=== PATIENT | male | born 1940 | race Caucasian/White ===

== ENCOUNTER → 2016-07-22 | Day surgery (SDC) | payer MEDICARE ==
[~2016-07-22] MED LIST: ALPR.25 PO; ASPI1TAB69 PO; ASPI81TA11 PO; BOSW5TAB PO; BUPIVACAINE HCL PF 0.75% 30 ML VIAL ONE; BUTA1CAP PO; CINN500C PO; CINN500C13 PO; CLON0.5T PO; CYANOCOBALAMIN 1000 MCG/ML VIAL IM ONE; CYCL1TAB29 PO; ERGO1CAP30 PO; FINA5TAB2 PO; MEPERIDINE HCL 25 MG/ML VIAL IV ONE; META0.52 PO; MIRA33504 PO; OXYC30TA PO; POLY17PO3 PO; PROPOFOL 200 MG/20 ML AMP IV ONE; SAW500CA PO; SENE8.6T3 PO; SUMA100T2 PO; TRAM50TA PO; TRIAMCINOLONE ACETONIDE 40 MG/ML VIAL NERV BLOCK ONE; VITATAB25 PO
--- NOTE | 2016-07-23 09:58 | M6 ---
cc: RADHA MENJIVAR M.D. DATE: 07/22/2016 DATE OF : 1940 History and physical was completed and signed. Consent was signed. Procedure site was marked. Medications were listed and reconciled. Pain score was recorded. Allergies were noted. Timeout was taken. Fluoroscopy time was recorded where applicable. Sedation was administered or directed by Dr. Menjivar. The patient was given oxygen. The patient was monitored by a registered nurse. Total procedure time was greater than 15 minutes. PROCEDURE S5 nerve neurolysis. PROCEDURE NOTE An IV was started, blood pressure cuff, pulse oximeter and EKG were applied. The patient was placed in a prone position and sedated with small amounts of propofol. The sacral and coccygeal area were prepped with alcohol and 10% Betadine solution, draped with sterile drapes. Then a 25-gauge needle was used to inject a total of 8 mL of Marcaine 0.75% which contained 60 mg of Kenalog and 1000 mcg of B12. Following this the patient was taken to the recovery room with stable vital signs. W. MD SKYLAR Huntley/LUCY /7:41 AM /9:55 AM
== END | disposition home or self-care (01) ==
LOC: PHSDC 06:26
PROVIDERS: ATTEND Pain Medicine Interventional Pain Medicine
DX: M54.5 Low back pain (principal)
CPT/HCPCS: 64640; 99152; J2175; J3301; J3420

== ENCOUNTER → 2016-08-04 | Day surgery (SDC) | payer MEDICARE ==
[~2016-08-04] MED LIST changes: -CYANOCOBALAMIN 1000 MCG/ML VIAL IM ONE
--- NOTE | 2016-08-08 09:53 | M6 ---
cc: RADHA MENJIVAR M.D. DATE 08/04/2016 DATE OF 1940 PROCEDURE S5 nerve neurolysis. PROCEDURE NOTE History and physical was completed and signed. Consent was signed. Procedure site was marked. Medications were listed and reconciled. Pain score was recorded. Allergies were noted. Time out was taken. Fluoroscopy time was recorded where applicable. Sedation was administered or directed by Dr. Menjivar. The patient was given oxygen. The patient was monitored by a registered nurse. Total procedure time was greater than 15 minutes. IV was started, blood pressure cuff, pulse oximeter and EKG were applied. The patient was placed in the prone position on a Mark table, sedated with small amounts of propofol titrated to effect. Vital signs were monitored and remained stable throughout the procedure. Sacral and coccygeal area were prepped with alcohol and 10% Betadine solution, draped with sterile drapes. The sacral hiatus was palpated. A 25 gauge needle was inserted down to the periosteum just distal to the hiatus. There was negative aspiration for blood or any other type of fluid and the patient was given a total of 8 mL of Marcaine 0.75% and 40 mg of Kenalog. Following the procedure, the patient was taken to the recovery room with stable vital signs neurologically intact. W. MD SKYLAR Huntley/GAURAV /7:30 AM /9:50 AM
== END | disposition home or self-care (01) ==
LOC: PHSDC 06:34
PROVIDERS: ATTEND Pain Medicine Interventional Pain Medicine
DX: M54.5 Low back pain (principal)
CPT/HCPCS: 64640; 99152; J2175; J3301

== ENCOUNTER → 2016-08-11 | Outpatient (CLI) | payer MEDICARE ==
[~2016-08-11] MED LIST changes: -ALPR.25 PO; -BUPIVACAINE HCL PF 0.75% 30 ML VIAL ONE; -BUTA1CAP PO; -FINA5TAB2 PO; -MEPERIDINE HCL 25 MG/ML VIAL IV ONE; -PROPOFOL 200 MG/20 ML AMP IV ONE; -TRIAMCINOLONE ACETONIDE 40 MG/ML VIAL NERV BLOCK ONE
[2016-08-11 13:18] LABS: AUTOMATED NEUTROPHIL # 4.4 TH/MM3 (1.8-7.7); BASOPHIL % 0.2 % (0.0-2.0); EOSINOPHIL % 0.3 % (0.0-4.0); HEMATOCRIT 40.7 % (39.0-51.0); HEMO FLAGS DIFF FINAL; LYMPH % 13.1 % (9.0-44.0); LYMPHOCYTE # 0.7 TH/MM3 (1.0-4.8); MEAN CELL VOLUME 88.8 FL (80.0-100.0); MEAN CORPUSCULAR HGB CONC 32.7 % (32.0-36.0); MONO % 8.5 % (0.0-8.0); NEUT % 77.9 % (16.0-70.0); PLATELET COUNT 142 TH/MM3 (150-450); RED BLOOD COUNT 4.58 MIL/MM3 (4.50-5.90); RED CELL DISTRIBUTION WIDTH 15.1 % (11.6-17.2); WHITE BLOOD COUNT 5.7 TH/MM3 (4.0-11.0)
[2016-08-11 13:33] LABS: ALKALINE PHOSPHATASE 93 U/L (45-117); ALT (GPT) 31 U/L (12-78); ANION GAP 9 MEQ/L (5-15); AST (GOT) 37 U/L (15-37); BICARBONATE 27.3 MEQ/L (21.0-32.0); BLOOD UREA NITROGEN 19 MG/DL (7-18); CHLORIDE 104 MEQ/L (98-107); GLOMERULAR FILTRATION RATE 89 ML/MIN (>89); GLUCOSE,FASTING 95 MG/DL (74-99); POTASSIUM 3.9 MEQ/L (3.5-5.1); SODIUM (NA) 140 MEQ/L (136-145); TOTAL BILIRUBIN ADULT 0.6 MG/DL (0.2-1.0)
== END ==
LOC: PLAB 11:01
PROVIDERS: ATTEND Family Medicine
DX: E55.9 Vitamin D deficiency, unspecified (principal)
CPT/HCPCS: 36415; 80053; 82306; 85025

== ENCOUNTER → 2016-09-24 | Day surgery (SDC) | payer MEDICARE ==
[~2016-09-24] MED LIST changes: +LIDOCAINE HCL 1% 30 ML VIAL INFIL ONE; +MEPERIDINE HCL 50 MG/ML VIAL IV ONE; +MIDAZOLAM HCL 2 MG/2 ML VIAL IV ONE; +PROPOFOL 200 MG/20 ML AMP IV ONE; +SODIUM CHLORIDE 0.9% 10 ML VIAL ONE; +methylPREDNISolone ACETATE 40 MG/ML VIAL I-ARTICULR ONE
--- NOTE | 2016-09-24 10:04 | M6 ---
cc: RADHA MENJIVAR M.D. DATE: 09/24/2016 1940 PROCEDURE Radiofrequency rhizotomy bilateral cervical facet joints (bilateral C3-4, C4-5 and C5-6 facet joints). History and physical was completed and signed. Consent was signed. Procedure site was marked. Medications were listed and reconciled. Pain score was recorded. Allergies were noted. Time out was taken. Fluoroscopy time was recorded where applicable. Sedation was administered or directed by Dr. Menjivar. The patient was given oxygen. The patient was monitored by a registered nurse. Total procedure time was greater than 15 minutes. IV was started, blood pressure cuff, pulse oximeter and EKG were applied. The patient was placed in the prone position on a Mark table, sedated with small amounts of propofol titrated to effect. Vital signs were monitored and remained stable throughout the procedure. The cervical area was prepped with alcohol and 10% Betadine solution and draped with sterile drapes. Fluoroscopy was used to visualize the target areas which were the "waist" between the bilateral cervical facet joints at C3-4, C4-5 and C5-6. The skin was infiltrated with 1% Xylocaine using a 27 gauge needle then insulated 20-gauge radiofrequency needles with a 10-mm active tip were advanced to the above-mentioned target areas. Fluoroscopy was used to confirm the needle was not near the nerve root. Once probably positioned thermal lesions took place at 80 degrees centigrade times 90 seconds. This was followed by injection of a small amount of Depo-Medrol at each location for a total of 60 mg of Depo-Medrol. Following the procedure the patient was taken to the recovery room with stable vital signs, neurologically intact. W. MD SKYLAR Huntley/SANTOS /8:10 AM /9:57 AM
== END | disposition home or self-care (01) ==
LOC: PHSDC 06:37
PROVIDERS: ATTEND Pain Medicine Interventional Pain Medicine
DX: M54.2 Cervicalgia (principal)
CPT/HCPCS: 64633; 64634; 99152; 99153; J1030; J2175; J2250

== ENCOUNTER → 2016-10-09 | Day surgery (SDC) | payer MEDICARE ==
[~2016-10-09] MED LIST changes: -ASPI1TAB69 PO; +BUPIVACAINE HCL PF 0.75% 30 ML VIAL ONE; -CINN500C PO; -LIDOCAINE HCL 1% 30 ML VIAL INFIL ONE; +MEPERIDINE HCL 25 MG/ML VIAL IV ONE; -MEPERIDINE HCL 50 MG/ML VIAL IV ONE; -MIDAZOLAM HCL 2 MG/2 ML VIAL IV ONE; -MIRA33504 PO; -SODIUM CHLORIDE 0.9% 10 ML VIAL ONE; +TRIAMCINOLONE ACETONIDE 40 MG/ML VIAL NERV BLOCK ONE; -methylPREDNISolone ACETATE 40 MG/ML VIAL I-ARTICULR ONE
--- NOTE | 2016-10-11 20:38 | M6 ---
cc: RADHA MENJIVAR M.D. DATE: 10/09/2016. DATE OF : 1940 PROCEDURE PERFORMED: S5 nerve neurolysis. DESCRIPTION OF THE PROCEDURE IN DETAIL: History and physical was completed and signed. Consent was signed. Procedure site was marked. Medications were listed and reconciled. Pain score was recorded. Allergies were noted. Time out was taken. Fluoroscopy time was recorded where applicable. Sedation was administered or directed by Dr. Menjivar. The patient was given oxygen. The patient was monitored by a registered nurse. Total procedure time was greater than 15 minutes. IV was started, blood pressure cuff, pulse oximeter and EKG were applied. The patient was placed in the prone position and sedated with small amounts of propofol titrated to effect. Vital signs were monitored and remained stable throughout the procedure. The sacral and coccygeal area were prepped with alcohol and 10% Betadine solution and draped with sterile drapes. The sacral hiatus was palpated. The coccyx was palpated. A 25 gauge needle was inserted down to the periosteum just distal to the sacral hiatus. There was negative aspiration for blood or any other type of fluid and the patient was given 8 mL of Marcaine 0.75%, 40 milligrams of Kenalog in a fan-like fashion across the dorsal aspect of the coccyx. Following the procedure, the patient was taken to the recovery room with stable vital signs neurologically intact. W. MD SKYLAR Huntley/MATEUSZ /7:35 AM /8:37 PM
== END | disposition home or self-care (01) ==
LOC: PHSDC 06:31
PROVIDERS: ATTEND Pain Medicine Interventional Pain Medicine
DX: M53.3 Sacrococcygeal disorders, not elsewhere classified (principal)
CPT/HCPCS: 64640; 99152; J2175; J3301

== ENCOUNTER 2016-11-28 13:14 | Emergency (ER) | payer MEDICARE ==
[~2016-11-28] VITALS: Ht 177.8 cm; Wt 70.0 kg
[~2016-11-28 13:14] MED LIST changes: -BUPIVACAINE HCL PF 0.75% 30 ML VIAL ONE; -CLON0.5T PO; -ERGO1CAP30 PO; -MEPERIDINE HCL 25 MG/ML VIAL IV ONE; -META0.52 PO; -POLY17PO3 PO; -PROPOFOL 200 MG/20 ML AMP IV ONE; -TRAM50TA PO; -TRIAMCINOLONE ACETONIDE 40 MG/ML VIAL NERV BLOCK ONE
[2016-11-28 13:19] VITALS: BP 164/93; PULSE 98; RESP 16; TEMP 98.2; O2SAT 99
[2016-11-28] MEDS ORDERED: ZITHTAB PO (14:18)
--- NOTE | 2016-11-28 14:41 | PD ---
HPI Chief Complaint: Cold / Flu Symptoms Time Seen by Provider: 14:03 Travel History International Travel<30 days: No Contact w/Intl Traveler<30days: No Traveled to known affect area: No History of Present Illness HPI This patient complains of low-grade fever and productive cough. He has some sinus pressure on the right side as well. He is traveling by plane to [place] in 5 days and wants to get his infection treated. No shortness of breath. Symptoms severity is moderate PFSH Past Medical History Cancer: No Cardiovascular Problems: Yes (1 stent) Diabetes: No Diminished Hearing: No Endocrine: No Genitourinary: Yes Hepatitis: No Hiatal Hernia: No Immune Disorder: No Musculoskeletal: Yes (back pain) Neurologic: No Psychiatric: Yes (ANXIETY) Reproductive: No Respiratory: No Myocardial Infarction: Yes (with stents) Thyroid Disease: No Past Surgical History AICD: No Body Medical Devices: 1 stent Cardiac Surgery: Yes (1 stent) Eye Surgery: Yes Joint Replacement: No Pacemaker: No Tonsillectomy: Yes Social History Alcohol Use: No Tobacco Use: No Substance Use: No Allergies-Medications (Allergen,Severity, Reaction): Coded Allergies: acetaminophen (Unverified Allergy, Severe, GI UPSET, 11/28/16) cephalexin (Unverified Allergy, Severe, Diarrhea, 11/28/16) oxycodone (Unverified Allergy, Severe, GI UPSET, 11/28/16) topiramate (Unverified Allergy, Severe, DEPRESSION, 11/28/16) Reported Meds & Prescriptions Reported Meds & Active Scripts Active Oxycodone (Oxycodone HCl) 30 Mg Tab 30 Mg PO Q6H PRN Reported Osteo Bi-Flex One A Day (Uyzyapkrw-Rdvtktfnkql-Ryzksve) 1 Tab 1 Tab PO DAILY Saw [place] 500 Mg Capsule 450 Mg PO DAILY Vitamin D-[address] (Cholecalciferol) 1,000 Unit Tab 1,000 Units PO DAILY Sumatriptan (Sumatriptan Succinate) 100 Mg Tab 100 Mg PO ONCE PRN If a satisfactory response has not been obtained at 2 hours, a second dose may be administered Sm Cinnamon (Cinnamon) 500 Mg Cap 1 Cap PO DAILY Aspirin EC (Aspirin) 81 Mg Tabdr 81 Mg PO DAILY Flexeril (Cyclobenzaprine HCl) 10 Mg Tab 10 Mg PO TID Senexon (Sennosides) 8.6 Mg Tab 1 Tab PO BID Review of Systems General / Constitutional: Positive: Fever HENT: No: Headaches Cardiovascular: No: Chest Pain or Discomfort Respiratory: Positive: Cough Physical Exam Narrative RESPIRATORY: Respiratory effort unlabored, no retractions or use of accessory muscles. Breath sounds are clear and symmetric. NECK: Symmetrical appearance, midline trachea. No mass or crepitus. Thyroid without enlargement, tenderness, or mass. Throat clear GASTROINTESTINAL: Abdomen soft, non-tender, nondistended. Positive bowel sounds. No hepato-splenomegaly, or palpable masses. No guarding. Data Data Last Documented VS Vital Signs Date Time Temp Pulse Resp B/P Pulse Ox O2 Delivery O2 Flow Rate FiO2 11/28/16 13:19 98.2 98 16 164/93 99 MDM Medical Decision Making Medical Screen Exam Complete: Yes Emergency Medical Condition: Yes Medical Record Reviewed: Yes Differential Diagnosis Bronchitis, pneumonia, sinusitis Narrative Course I have reviewed the patient's electronic medical record. Presentation is consistent with acute bronchitis with maybe a degree of sinusitis I wrote him a Z-Oral Diagnosis Primary Impression: Acute bronchitis Qualified Code: J20.9 - Acute bronchitis, unspecified organism Additional Instructions: The patient was advised to follow up with their physician and return if they worsen. Med/Other Pt SpecificInfo: Prescription(s) given Scripts Azithromycin (Zithromax Z-Oral)250 Mg [id number] Mg PO DIRECTED #1 DSPK Ref 0 500 MG (2 tabs) day 1, then 1 tab days 2-5. Prov:Christian Ronquillo MD 11/28/16 Disposition: 01 DISCHARGE HOME Condition: Stable Chrisitan Ronquillo MD Nov 28, 2016 14:40
[2016-12-05] MEDS ORDERED: SUMA100T2 PO (13:39)
[2016-12-05] MEDS ORDERED: ERGO1CAP30 PO ×2 (13:42→13:45)
== END 2016-11-28 14:52 | disposition home or self-care (01) ==
LOC: PHED 13:14
DX: J20.9 Acute bronchitis, unspecified (principal); R51 Headache; I25.2 Old myocardial infarction; Z86.79 Personal history of other diseases of the circulatory system; Z87.448 Personal history of other diseases of urinary system; Z87.39 Personal history of other diseases of the musculoskeletal system and connective tissue; Z86.59 Personal history of other mental and behavioral disorders
CPT/HCPCS: 99283

== ENCOUNTER → 2017-03-12 | Outpatient (CLI) | payer MEDICARE ==
[~2017-03-12] MED LIST changes: -ASPI81TA11 PO; +ASPI81TA23 PO; -BOSW5TAB PO; -CINN500C13 PO; +CINN500C14 PO; +CYCL10TA PO; -CYCL1TAB29 PO; +VITA500012 PO
== END ==
LOC: CLAB 11:44
PROVIDERS: ATTEND Urology
DX: N40.1 Benign prostatic hyperplasia with lower urinary tract symptoms (principal)
CPT/HCPCS: 36415; 84153

== ENCOUNTER → 2017-04-27 | Day surgery (SDC) | payer MEDICARE ==
[~2017-04-27] VITALS: Ht 170.2 cm; Wt 69.5 kg
[~2017-04-27] MED LIST changes: +ACETAMINOPHEN 1000 MG/100 ML 100 ML IV ONE; +CHLORHEXIDINE GLUCONATE 2 % 1 PACK (2 CLOTHS) TOPICAL PRN; +DEXAMETHASONE SOD PHOS 4 MG/ML VIAL IV ONE; +DO NOT ADM ANY ANTICOAGULANT DRUGS PRN; +GLYCOPYRROLATE 1 MG/5 ML SYRINGE IV PUSH ONE; +LACTATED RINGER'S 1000 ML IV PRN; +LEVA500T33 PO; +LEVOFLOXACIN 500 MG PREMIX INJ 100 ML IV SCH; +LIDOCAINE HCL 1% PF 5 ML SYRINGE OTHER ONE; +METOPROLOL TARTRATE 25 MG TAB PO PRN; +ONDANSETRON HCL 4 MG/2 ML VIAL IV ONE; +ONDANSETRON HCL 4 MG/2 ML VIAL IV PUSH PRN; +OXYC1CAP PO; +PHENYLEPH/NS 1000 MCG/10 ML SYR IV ONE; +POVIDONE IODINE 5% (ANTISEPSIS KIT) 4 APPLICATIONS EACH NARE PRN; +PROPOFOL 200 MG/20 ML AMP IV ONE; +ROCURONIUM INJ 50 MG/5 ML SYRINGE IV PUSH ONE; -SAW500CA PO; +SODIUM CHLORID 0.9% 500 ML IV PRN; +SUGAMMADEX SODIUM 200 MG/2 ML VIAL IV PUSH ONE; -VITA500012 PO; -VITATAB25 PO; +ePHEDrine/NS 25 MG/5 ML SYRINGE IV ONE
[2017-04-27 11:17] LABS: BASOPHIL % 0.5 % (0.0-2.0); EOSINOPHIL # 0.2 TH/MM3 (0-0.4); EOSINOPHIL % 3.4 % (0.0-4.0); HEMATOCRIT 39.7 % (39.0-51.0); HEMOGLOBIN 13.6 GM/DL (13.0-17.0); LYMPH % 21.8 % (9.0-44.0); MEAN CELL VOLUME 87.1 FL (80.0-100.0); MEAN CORPUSCULAR HEMOGLOBIN 29.9 PG (27.0-34.0); MEAN CORPUSCULAR HGB CONC 34.3 % (32.0-36.0); MONO % 10.2 % (0.0-8.0); MONOCYTE # 0.5 TH/MM3 (0-0.9); NEUT % 64.1 % (16.0-70.0); PLATELET COUNT 181 TH/MM3 (150-450); RED BLOOD COUNT 4.56 MIL/MM3 (4.50-5.90); RED CELL DISTRIBUTION WIDTH 13.4 % (11.6-17.2); WHITE BLOOD COUNT 4.7 TH/MM3 (4.0-11.0)
--- NOTE | 2017-04-27 14:06 | PD.OP ---
Operative Report Date of Surgery: Apr 27, 2017 Preoperative Diagnosis: (1) BPH (benign prostatic hypertrophy) with urinary obstruction Postoperative Diagnosis: (1) BPH (benign prostatic hypertrophy) with urinary obstruction Procedure: Cystoscopy and transurethral resection of the prostate Anesthesia: General Surgeon: Hever Magaña Post Office Clerk(s): None Operation and Findings: Indication for procedure: Case of a pleasant 76-year-old gentleman with lower urinary tract symptoms who was recently worked up with cystoscopy and noted to have bladder outlet obstruction secondary to enlarged obstructing median lobe of the prostate. Patient presents today to undergo cystoscopy with transurethral resection of the obstructing prostatic tissue. Operative procedure in detail: Patient was brought to the operating suite and placed supine on the OR table. He was then placed under general anesthesia. He was then repositioned in the dorsal lithotomy position and prepped and draped in normal sterile fashion. After an appropriate timeout was undertaken, I proceeded with placement of the resectoscope sheath with the obturator in place. The obturator was then exchanged for the lens with the working element. Once again the patient was noted to have bladder outlet obstruction secondary to enlarged median lobe of prostate. I then proceeded with resection of the obstructing prostatic tissue. Care was taken to avoid any inadvertent vaporization of tissue in the vicinity of the ureter office his or beyond the verumontanum thus preserving the integrity of the external sphincter. Once the obstructing tissue was resected, the Elik evacuator was used to recover this tissue which was sent off to pathology. Careful inspection was then made for evidence of active bleeding and none was noted. The resectoscope was withdrawn and a 20 Sami 30 cc Cui catheter was placed without difficulty and connected to gravity drainage. The patient tolerated the procedures without complications and was transferred to the PACU in satisfactory condition. Hever Magaña MD Apr 27, 2017 14:05
[2017-04-27 16:05] VITALS: BP 152/89; PULSE 75; RESP 18; TEMP 97.5; O2SAT 97
--- NOTE | 2017-04-28 15:11 | EKG ---
Date Performed: 04/27/2017 Time Performed: 10:45:12 PTAGE: 76 years EKG: Sinus rhythm Since previous tracing, no significant change noted NORMAL ECG PREVIOUS TRACING : 01/22/2016 13.47 DOCTOR: Emily Diehl Interpretating Date/Time 04/28/2017 15:10:23
== END | disposition home or self-care (01) ==
LOC: HSDC 09:59
PROVIDERS: ATTEND Urology
DX: N40.1 Benign prostatic hyperplasia with lower urinary tract symptoms (principal); N13.8 Other obstructive and reflux uropathy; Z01.810 Encounter for preprocedural cardiovascular examination; Z01.818 Encounter for other preprocedural examination
CPT/HCPCS: 00914; 52601; 85025; 88305; 93005; J0131; J1100; J2370; J2405; J3010; J7120

== ENCOUNTER 2017-06-04 17:45 | Emergency (ER) | payer MEDICARE ==
[~2017-06-04] VITALS: Ht 179.1 cm; Wt 68.0 kg
[~2017-06-04 17:45] MED LIST changes: -ACETAMINOPHEN 1000 MG/100 ML 100 ML IV ONE; -CHLORHEXIDINE GLUCONATE 2 % 1 PACK (2 CLOTHS) TOPICAL PRN; -DEXAMETHASONE SOD PHOS 4 MG/ML VIAL IV ONE; -DO NOT ADM ANY ANTICOAGULANT DRUGS PRN; -GLYCOPYRROLATE 1 MG/5 ML SYRINGE IV PUSH ONE; -LACTATED RINGER'S 1000 ML IV PRN; -LEVA500T33 PO; -LEVOFLOXACIN 500 MG PREMIX INJ 100 ML IV SCH; -LIDOCAINE HCL 1% PF 5 ML SYRINGE OTHER ONE; -METOPROLOL TARTRATE 25 MG TAB PO PRN; -ONDANSETRON HCL 4 MG/2 ML VIAL IV ONE; -ONDANSETRON HCL 4 MG/2 ML VIAL IV PUSH PRN; -PHENYLEPH/NS 1000 MCG/10 ML SYR IV ONE; -POVIDONE IODINE 5% (ANTISEPSIS KIT) 4 APPLICATIONS EACH NARE PRN; -PROPOFOL 200 MG/20 ML AMP IV ONE; -ROCURONIUM INJ 50 MG/5 ML SYRINGE IV PUSH ONE; -SODIUM CHLORID 0.9% 500 ML IV PRN; -SUGAMMADEX SODIUM 200 MG/2 ML VIAL IV PUSH ONE; -ePHEDrine/NS 25 MG/5 ML SYRINGE IV ONE
[2017-06-04 17:49] VITALS: BP 150/82; PULSE 86; RESP 16; TEMP 98.3; O2SAT 98
[2017-06-04] MEDS ORDERED: SODIUM CHLORIDE 0.9% FLUSH 10 ML FLUSH IV FLUSH PRN (18:30)
--- NOTE | 2017-06-04 18:31 | PD ---
HPI Chief Complaint: Fall Time Seen by Provider: 18:05 Travel History International Travel<30 days: No Contact w/Intl Traveler<30days: No Traveled to known affect area: No History of Present Illness HPI 76-year-old male with history of dementia lives with his , here for evaluation of lower back pain and coccyx pain after 2 falls in the last 5 days. About 5 days ago the patient slid off of his chair to the ground. About 3 days ago he fell backwards while in the bathroom. He denies head injury or LOC during each of these falls. He is not on any antiplatelets or anticoagulants. He has been having worsening lower back pain and pain over his coccyx her last 2 -3 days. Pain is 7 out of 10, constant, worse with movements, radiates to his bilateral lower extremities. He also complains of constant pain in his knees, stating that the pain in his knees make him fall. 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) Hepatitis: No Hiatal Hernia: No Immune Disorder: No Musculoskeletal: Yes (back pain, ARTHRITIS) Neurologic: No Psychiatric: Yes (ANXIETY) Reproductive: No Respiratory: No Myocardial Infarction: Yes (with stents) Thyroid Disease: No Tetanus Vaccination: Unknown ?: Not Past Surgical History AICD: No Body Medical Devices: CARDIAC STENT Cardiac Surgery: Yes (1 stent) Eye Surgery: Yes (CATARACT REMOVAL) Joint Replacement: No Pacemaker: No Tonsillectomy: Yes Other Surgery: Yes Social History Alcohol Use: No Tobacco Use: No Substance Use: No Allergies-Medications (Allergen,Severity, Reaction): Coded Allergies: No Known Allergies (Unverified , 06/04/17) Reported Meds & Prescriptions Reported Meds & Active Scripts Active Sumatriptan (Sumatriptan Succinate) 100 Mg Tab 100 Mg PO ONCE PRN If a satisfactory response has not been obtained at 2 hours, a second dose may be administered Reported Oxycodone (Oxycodone HCl) 30 Mg Tab 30 Mg PO Q6H PRN Sm Cinnamon (Cinnamon) 500 Mg Cap 1 Cap PO DAILY Aspirin EC (Aspirin) 81 Mg Tabdr 81 Mg PO DAILY PT OFF DOSE FOR 2WEEKS IN PREP FOR SURGERY Senexon (Sennosides) 8.6 Mg Tab 1 Tab PO BID Review of Systems Except as stated in HPI: all other systems reviewed are Neg Physical Exam Narrative GENERAL: Well-developed, well-nourished, elderly-appearing male, lying on the stretcher on his right side, no apparent distress. SKIN: Focused skin assessment warm/dry. Ecchymosis to right anterior knee. No lacerations. HEAD: Atraumatic. Normocephalic. EYES: Pupils equal and round. No scleral icterus. No injection or drainage. ENT: No nasal bleeding or discharge. Mucous membranes pink and moist. NECK: Trachea midline. No JVD. CARDIOVASCULAR: Regular rate and rhythm. RESPIRATORY: No accessory muscle use. Clear to auscultation. Breath sounds equal bilaterally. GASTROINTESTINAL: Abdomen soft, non-tender, nondistended. Hepatic and splenic margins not palpable. MUSCULOSKELETAL: Ecchymosis to right anterior knee with mild edema, normal range of motion in bilateral knees without obvious deformity. Moderate midline lumbar spine tenderness without step-off. There is also tenderness over the coccyx bone. Mild midline thoracic spine tenderness without step-off. No midline cervical spine tenderness or step-off. The rest of his joints and extremities are without deformity, without tenderness, with normal range of motion. NEUROLOGICAL: Awake and alert. No obvious cranial nerve deficits. Motor grossly within normal limits. Normal speech. PSYCHIATRIC: Appropriate mood and affect; insight and judgment normal. Data Data Last Documented VS Vital Signs Date Time Temp Pulse Resp B/P (MAP) Pulse Ox O2 Delivery O2 Flow Rate FiO2 06/04/17 20:05 82 16 142/75 (97) 99 Nasal Cannula 06/04/17 17:49 98.3 Orders Orders Complete Blood Count With Diff (06/04/17 18:24) Comprehensive Metabolic Panel (06/04/17 18:24) Prothrombin Time / Inr (Pt) (06/04/17 18:24) Act Partial Throm Time (Ptt) (06/04/17 18:24) Urinalysis - C+S If Indicated (06/04/17 18:24) Iv Access Insert/Monitor (06/04/17 18:24) Ecg Monitoring (06/04/17 18:24) Oximetry (06/04/17 18:24) Sodium Chloride 0.9% Flush (Ns Flush) (06/04/17 18:30) Ct Brain W/O Iv Contrast(Rout) (06/04/17 ) Ct Cerv Spine W/O Contrast (06/04/17 ) Ct Thor Spine W/O Contrast (06/04/17 ) Ct Lumb Spine W/O Contrast (06/04/17 ) Ct Pelvis W/O Iv Contrast (06/04/17 ) Knee, Complete (4vws) (06/04/17 ) Knee, Complete (4vws) (06/04/17 ) Morphine Inj (Morphine Inj) (06/04/17 19:15) Urine Culture (06/04/17 20:00) Ceftriaxone Inj (Rocephin Inj) (06/04/17 20:45) Labs Laboratory Tests Test 06/04/17 18:44 06/04/17 20:00 White Blood Count 4.6 TH/MM3 Red Blood Count 4.51 MIL/MM3 Hemoglobin 13.2 GM/DL Hematocrit 39.8 % Mean Corpuscular Volume 88.2 FL Mean Corpuscular Hemoglobin 29.3 PG Mean Corpuscular Hemoglobin Concent 33.2 % Red Cell Distribution Width 12.2 % Platelet Count 206 TH/MM3 Mean Platelet Volume 6.0 FL Neutrophils (%) (Auto) 75.1 % Lymphocytes (%) (Auto) 15.9 % Monocytes (%) (Auto) 7.3 % Eosinophils (%) (Auto) 0.7 % Basophils (%) (Auto) 1.0 % Neutrophils # (Auto) 3.6 TH/MM3 Lymphocytes # (Auto) 0.7 TH/MM3 Monocytes # (Auto) 0.3 TH/MM3 Eosinophils # (Auto) 0.0 TH/MM3 Basophils # (Auto) 0.0 TH/MM3 CBC Comment DIFF FINAL Differential Comment Prothrombin Time 11.2 SEC Prothromb Time International Ratio 1.1 RATIO Activated Partial Thromboplast Time 27.2 SEC Blood Urea Nitrogen 13 MG/DL Creatinine 0.90 MG/DL Random Glucose 92 MG/DL Total Protein 7.1 GM/DL Albumin 3.6 GM/DL Calcium Level 8.8 MG/DL Alkaline Phosphatase 72 U/L Aspartate Amino Transf (AST/SGOT) 25 U/L Alanine Aminotransferase (ALT/SGPT) 16 U/L Total Bilirubin 0.4 MG/DL Sodium Level 139 MEQ/L Potassium Level 3.7 MEQ/L Chloride Level 107 MEQ/L Carbon Dioxide Level 27.0 MEQ/L Anion Gap 5 MEQ/L Estimat Glomerular Filtration Rate 82 ML/MIN Urine Color YELLOW Urine Turbidity HAZY Urine pH 6.0 Urine Specific [place] 1.022 Urine Protein 30 mg/dL Urine Glucose (UA) NEG mg/dL Urine Ketones NEG mg/dL Urine Occult Blood MOD Urine Nitrite NEG Urine Bilirubin NEG Urine Leukocyte Esterase SMALL Urine RBC 15-19 /hpf Urine WBC 50-99 /hpf Urine WBC Clumps FEW Urine Squamous Epithelial Cells 0-5 /hpf Urine Amorphous Sediment FEW Urine Mucus MANY /lpf Microscopic Urinalysis Comment CULTURE INDICATED MDM Medical Decision Making Medical Screen Exam Complete: Yes Emergency Medical Condition: Yes Differential Diagnosis Vertebral injury, contusions, frequent falls, unsteady gait, cord compression Narrative Course Vital signs reviewed. CBC is essentially unremarkable. CMP is unremarkable. UA is suggestive of UTI. The patient was given a dose of [address] brain: CONCLUSION: 1. Senescent changes without acute intracranial abnormality. CT cervical spine: CONCLUSION: 1. No acute fracture or subluxation. 2. Advanced degenerative spondylosis of the lower cervical spine most prominently at C4-7. CT thoracic spine: CONCLUSION: 1. No acute fracture or subluxation. 2. Mild degenerative spondylosis of the thoracic spine most prominently at T9- 10. CT lumbar spine: CONCLUSION: 1. No acute fracture or subluxation. 2. Degenerative spondylosis of the lower lumbar spine most prominently at C4-5. 3. 5.6 cm simple appearing cyst in the super pole the left kidney. CT pelvis: CONCLUSION: 1. No CT evidence for acute traumatic abnormality in the pelvis. 2. Moderate sigmoid diverticulosis. The patient and the patient's were made aware of all findings. He was given a dose of 1 g of IV Rocephin for his UTI. I offered to admit the patient for further pain management and possible placement, however he is adamant that he does not want to be admitted and would like to be discharged home. He reports he is able to walk with his walker. I will honor his wishes and discharge him home with strict return instructions as well as advised him to follow up with his primary care physician this week. He is already on opiates at home. He will be started on Cipro for his UTI. He verbalizes understanding and agreement plan. Diagnosis Primary Impression: Falls Qualified Codes: W19.XXXA - Unspecified fall, initial encounter Additional Impressions: Coccygeal pain Osteoarthritis Qualified Codes: M19.90 - Unspecified osteoarthritis, unspecified site UTI (urinary tract infection) Qualified Codes: N39.0 - Urinary tract infection, site not specified; R31.9 - Hematuria, unspecified Referrals: Primary Care Physician 2 days Additional Instructions: Follow-up with your primary care physician in the next 2-3 days. Return to the emergency department for worsening symptoms or any other concerns. Scripts Ciprofloxacin (Cipro) 500 Mg Tab 500 MG PO BID for Infection for 7 Days, #14 TAB 0 Refills Prov: Tony Cabrera MD 06/04/17 Disposition: 01 DISCHARGE HOME Condition: Stable Tony Cabrera MD Jun 04, 2017 18:31
[2017-06-04 18:48] LABS: AUTOMATED NEUTROPHIL # 3.6 TH/MM3 (1.8-7.7); EOSINOPHIL % 0.7 % (0.0-4.0); HEMATOCRIT 39.8 % (39.0-51.0); HEMOGLOBIN 13.2 GM/DL (13.0-17.0); LYMPH % 15.9 % (9.0-44.0); LYMPHOCYTE # 0.7 TH/MM3 (1.0-4.8); MEAN CELL VOLUME 88.2 FL (80.0-100.0); MEAN CORPUSCULAR HEMOGLOBIN 29.3 PG (27.0-34.0); MEAN CORPUSCULAR HGB CONC 33.2 % (32.0-36.0); MONO % 7.3 % (0.0-8.0); MONOCYTE # 0.3 TH/MM3 (0-0.9); NEUT % 75.1 % (16.0-70.0); PLATELET COUNT 206 TH/MM3 (150-450); RED BLOOD COUNT 4.51 MIL/MM3 (4.50-5.90); RED CELL DISTRIBUTION WIDTH 12.2 % (11.6-17.2); WHITE BLOOD COUNT 4.6 TH/MM3 (4.0-11.0)
[2017-06-04 18:58] LABS: CHLORIDE 107 MEQ/L (98-107); SODIUM (NA) 139 MEQ/L (136-145)
[2017-06-04 19:01] LABS: CALCIUM 8.8 MG/DL (8.5-10.1)
[2017-06-04 19:02] LABS: ALBUMIN 3.6 GM/DL (3.4-5.0); BLOOD UREA NITROGEN 13 MG/DL (7-18); GLUCOSE,RANDOM 92 MG/DL (74-106)
[2017-06-04 19:03] LABS: INTERNATIONAL NORMALIZED RATIO 1.1 RATIO; PROTHROMBIN TIME - PATIENT 11.2 SEC (9.8-11.6)
[2017-06-04 19:05] LABS: ALT (GPT) 16 U/L (12-78); AST (GOT) 25 U/L (15-37); GLOMERULAR FILTRATION RATE 82 ML/MIN (>89)
[2017-06-04 19:06] LABS: TOTAL BILIRUBIN ADULT 0.4 MG/DL (0.2-1.0); TOTAL PROTEIN 7.1 GM/DL (6.4-8.2)
[2017-06-04 19:07] LABS: ALKALINE PHOSPHATASE 72 U/L (45-117)
[2017-06-04] MEDS ORDERED: MORPHINE SULFATE 2 MG/ML INJ IV PUSH ONE ×2 (19:15→21:00)
--- NOTE | 2017-06-04 19:49 | RADRPT ---
EXAM DATE/TIME: 06/04/2017 19:06 [facility] COMPARISON: No previous studies available for comparison. INDICATIONS : Left knee pain, no known injury. MEDICAL HISTORY : None. SURGICAL HISTORY : None. ENCOUNTER: Initial ACUITY: 1 day PAIN SCORE: 9/10 LOCATION: Left knee FINDINGS: Four view examination of the left knee demonstrates no evidence of fracture or dislocation. Bony min eralization is normal. Mild tricompartmental degenerative change. The suprapatellar soft tissues have a normal configuration. CONCLUSION: 1. Mild tricompartmental degenerative osteoarthritis. 2. No acute fracture or dislocation. Jason Aden MD on June 04, 2017 at 19:47 Board Certified Radiologist. This report was verified electronically.
--- NOTE | 2017-06-04 19:49 | RADRPT ---
EXAM DATE/TIME: 06/04/2017 19:06 [facility] COMPARISON: No previous studies available for comparison. INDICATIONS : Right knee pain, no known injury. MEDICAL HISTORY : None. SURGICAL HISTORY : None. ENCOUNTER: Initial ACUITY: 1 day PAIN SCORE: 9/10 LOCATION: Right knee FINDINGS: Four view examination of the right knee demonstrates no evidence of fracture or dislocation. Bony mi neralization is normal. Mild degenerative changes, most prominently in the patellofemoral compartment . The suprapatellar soft tissues have a normal configuration. CONCLUSION: 1. Mild tricompartmental degenerative arthritis. 2. No acute fracture or dislocation. Jason Aden MD on June 04, 2017 at 19:46 Board Certified Radiologist. This report was verified electronically.
[2017-06-04 20:05] VITALS: BP 142/75; PULSE 82; RESP 16; O2SAT 99
[2017-06-04 20:24] LABS: BILIRUBIN, URINE NEG (NEG); BLOOD, URINE MOD (NEG); GLUCOSE,URINE NEG (NEG); KETONE, URINE NEG (NEG); NITRITE,URINE NEG (NEG); URINE LEUKOCYTE ESTERASE SMALL (NEG)
--- NOTE | 2017-06-04 20:27 | RADRPT ---
EXAM DATE/TIME: 06/04/2017 19:31 [facility] COMPARISON: No previous studies available for comparison. INDICATIONS : Trauma, fall three days ago. RADIATION DOSE: 68.62 CTDIvol (mGy) MEDICAL HISTORY : Myocardial infarction. SURGICAL HISTORY : Tonsillectomy. ENCOUNTER: Initial ACUITY: 3 days PAIN SCALE: 0/10 LOCATION: Bilateral head TECHNIQUE: Multiple contiguous axial images were obtained of the head. Using automated exposure control and adj ustment of the mA and/or kV according to patient size, radiation dose was kept as low as reasonably a chievable to obtain optimal diagnostic quality images. DICOM format image data is available electro nically for review and comparison. FINDINGS: CEREBRUM: Mild diffuse cervical atrophy. The ventricles are normal for age. No evidence of midline shift, mass lesion, hemorrhage or acute infarction. No extra-axial fluid collections are seen. POSTERIOR FOSSA: The cerebellum and brainstem are intact. The 4th ventricle is midline. The cerebellopontine angle i s unremarkable. EXTRACRANIAL: The visualized portion of the orbits is intact. SKULL: The calvaria is intact. No evidence of skull fracture. CONCLUSION: 1. Senescent changes without acute intracranial abnormality. Jason Aden MD on June 04, 2017 at 20:25 Board Certified Radiologist. This report was verified electronically.
[2017-06-04 20:28] LABS: MUCUS URINE MANY /lpf (OCC); URINE COLOR YELLOW (YELLW/STRAW); WHITE BLOOD CELL CLUMPS FEW
[2017-06-04 20:29] LABS: RBC, URINE 15-19 /hpf (0-3); SQUAMOUS EPITHELIAL CELL URINE 0-5 /hpf (0-5)
--- NOTE | 2017-06-04 20:29 | RADRPT ---
EXAM DATE/TIME: 06/04/2017 19:31 [facility] COMPARISON: No previous studies available for comparison. INDICATIONS : Trauma, fall three days ago. RADIATION DOSE: 26.51 CTDIvol (mGy) MEDICAL HISTORY : Myocardial infarction. SURGICAL HISTORY : Tonsillectomy. ENCOUNTER: Initial ACUITY: 3 days PAIN SCALE: 0/10 LOCATION: Bilateral neck TECHNIQUE: Volumetric scanning of the cervical spine was performed. Multiplanar reconstructions in the sagittal, coronal and oblique axial planes were performed. Using automated exposure control and adjustment o f the mA and/or kV according to patient size, radiation dose was kept as low as reasonably achievable to obtain optimal diagnostic quality images. DICOM format image data is available electronically f or review and comparison. FINDINGS: Vertebral body heights are maintained. Osseous structures are intact without evidence for acute bony fracture. Dens is intact. Sagittal alignment is maintained. There is a normal C1-2 relationship. Face ts are normally aligned. There is no significant prevertebral soft tissue hematoma. Advanced degenera tive spondylosis of the lower cervical spine most prominently at C4-7 with disc space narrowing and p osterior disc osteophytes. There is also limited calcification of the posterior longitudinal ligament . Mild bony right neural foraminal narrowing at C5-6 and C6-7. Multilevel facet arthropathy. No signi ficant cervical adenopathy or gross mass. The thyroid appears unremarkable. Visualized lung apices ar e clear without pneumothorax. CONCLUSION: 1. No acute fracture or subluxation. 2. Advanced degenerative spondylosis of the lower cervical spine most prominently at C4-7. Jason Aden MD on June 04, 2017 at 20:26 Board Certified Radiologist. This report was verified electronically.
[2017-06-04 20:30] LABS: AMORPHOUS SEDIMENT, URINE FEW
--- NOTE | 2017-06-04 20:33 | RADRPT ---
EXAM DATE/TIME: 06/04/2017 19:37 [facility] COMPARISON: No previous studies available for comparison. INDICATIONS : Trauma, fall three days ago. RADIATION DOSE: 12.35 CTDIvol (mGy) ; Combined studies MEDICAL HISTORY : Myocardial infarction. SURGICAL HISTORY : Tonsillectomy. cardiac stent placement ENCOUNTER: Initial ACUITY: 3 days PAIN SCALE: 0/10 LOCATION: Bilateral upper back TECHNIQUE: Volumetric scanning of the thoracic spine was performed. Multiplanar reconstructions in the sagittal , coronal and oblique axial planes were performed. Using automated exposure control and adjustment o f the mA and/or kV according to patient size, radiation dose was kept as low as reasonably achievable to obtain optimal diagnostic quality images. DICOM format image data is available electronically f or review and comparison. FINDINGS: The vertebral bodies of the thoracic spine are in normal alignment without evidence of subluxation. Vertebral body height is maintained. No fractures are seen. Visualized portions of the lungs are merry ar. No gross adenopathy in the visualized portions of the mediastinum. No significant paravertebral a bnormality. T1-T2: Normal. T2-T3: The thecal sac has a normal diameter. No evidence of disc bulge or protrusion. T3-T4: The thecal sac has a normal diameter. No evidence of disc bulge or protrusion. T4-T5: The thecal sac has a normal diameter. No evidence of disc bulge or protrusion. T5-T6: The thecal sac has a normal diameter. No evidence of disc bulge or protrusion. T6-T7: The thecal sac has a normal diameter. No evidence of disc bulge or protrusion. T7-T8: The thecal sac has a normal diameter. No evidence of disc bulge or protrusion. T8-T9: The thecal sac has a normal diameter. No evidence of disc bulge or protrusion. T9-T10: Mild disc space narrowing with vacuum disc phenomenon. Mild diffuse disc bulge. Bony central canal an d neuroforamina are patent. T10-T11: Mild diffuse disc bulge. Bony central canal and neuroforamina are patent. T11-T12: The thecal sac has a normal diameter. No evidence of disc bulge or protrusion. T12-L1: The thecal sac has a normal diameter. No evidence of disc bulge or protrusion. CONCLUSION: 1. No acute fracture or subluxation. 2. Mild degenerative spondylosis of the thoracic spine most prominently at T9-10. Jason Aden MD on June 04, 2017 at 20:28 Board Certified Radiologist. This report was verified electronically.
[2017-06-04] MEDS ORDERED: cefTRIAXone INJ 1,000 MG in SODIUM CHLORIDE 0.9% INJ 100 ML IV ONE (20:45)
--- NOTE | 2017-06-04 20:56 | RADRPT ---
EXAM DATE/TIME: 06/04/2017 19:37 [facility] COMPARISON: No previous studies available for comparison. INDICATIONS : Trauma, fall three days ago. RADIATION DOSE: 12.35 CTDIvol (mGy) ; Combined studies MEDICAL HISTORY : Myocardial infarction. SURGICAL HISTORY : Tonsillectomy. ENCOUNTER: Initial ACUITY: 3 days PAIN SCALE: 8/10 LOCATION: Bilateral lower back TECHNIQUE: Volumetric scanning of the lumbar spine was performed. Multiplanar reconstructions in the sagittal, coronal and oblique axial planes were performed. Using automated exposure control and adjustment of the mA and/or kV according to patient size, radiation dose was kept as low as reasonably achievable t o obtain optimal diagnostic quality images. DICOM format image data is available electronically for review and comparison. FINDINGS: VERTEBRAE: Normal vertebral body height. ALIGNMENT: No evidence of subluxation. Paraspinal soft tissues: 5.6 cm cyst in the superior pole of the left kidney. Visualized abdominal aorta is normal in caliber. Sigmoid diverticulosis. No significant retroperitoneal adenopathy. T12-L1: The thecal sac has a normal diameter. No evidence of disc bulge or protrusion. The neural foramina are patent bilaterally. L1-L2: The thecal sac has a normal diameter. No evidence of disc bulge or protrusion. The neural foramina are patent bilaterally. L2-L3: The thecal sac has a normal diameter. No evidence of disc bulge or protrusion. The neural foramina are patent bilaterally. L3-L4: Mild diffuse disc bulge. Bony central canal is patent. No significant neural foraminal stenosis. L4-L5: Diffuse disc space loss within plates sclerosis and posterior disc osteophytes. Mild bilateral facet arthropathy. Effacement of the anterior thecal sac. Mild caudal bilateral neural foraminal narrowing. L5-S1: Mild diffuse disc bulge. No significant central canal or neural foraminal stenosis. CONCLUSION: 1. No acute fracture or subluxation. 2. Degenerative spondylosis of the lower lumbar spine most prominently at C4-5. 3. 5.6 cm simple appearing cyst in the super pole the left kidney. Jason Aden MD on June 04, 2017 at 20:51 Board Certified Radiologist. This report was verified electronically.
--- NOTE | 2017-06-04 20:58 | RADRPT ---
EXAM DATE/TIME: 06/04/2017 19:37 [facility] COMPARISON: No previous studies available for comparison. INDICATIONS : Trauma, fall three days ago. ORAL CONTRAST: No oral contrast ingested. RADIATION DOSE: 12.35 CTDIvol (mGy) ; Combined studies MEDICAL HISTORY : Myocardial infarction. SURGICAL HISTORY : Tonsillectomy. ENCOUNTER: Initial ACUITY: 3 days PAIN SCALE: 7/10 LOCATION: Bilateral posterior pelvis TECHNIQUE: Volumetric scanning of the pelvis was performed. Using automated exposure control and adjustment of the mA and/or kV according to patient size, radiation dose was kept as low as reasonably achievable t o obtain optimal diagnostic quality images. DICOM format image data is available electronically for review and comparison. FINDINGS: BOWEL/MESENTERY: Moderate sigmoid diverticulosis no significant inflammatory change. Remaining visualized bowel appear grossly unremarkable. BLADDER: There is no wall thickening or mass. RETROPERITONEUM: There is no aneurysm or lymphadenopathy. REPRODUCTIVE: Within normal limits. INGUINAL: There is no lymphadenopathy or hernia. MUSCULOSKELETAL: Degenerative spondylosis of the lower lumbar spine. Osseous structures are otherwise intact without a cute bony fracture. CONCLUSION: 1. No CT evidence for acute traumatic abnormality in the pelvis. 2. Moderate sigmoid diverticulosis. Jason Aden MD on June 04, 2017 at 20:54 Board Certified Radiologist. This report was verified electronically.
[2017-06-04] MEDS ORDERED: CIPR-9 PO (21:03)
[2017-06-04 21:57] VITALS: BP 135/87
== END 2017-06-04 22:03 | disposition home or self-care (01) ==
LOC: PHED 17:45
DX: N39.0 Urinary tract infection, site not specified (principal); K57.30 Diverticulosis of large intestine without perforation or abscess without bleeding; N28.1 Cyst of kidney, acquired; M47.9 Spondylosis, unspecified; M19.90 Unspecified osteoarthritis, unspecified site; F41.9 Anxiety disorder, unspecified; I25.2 Old myocardial infarction; Z79.82 Long term (current) use of aspirin; Z79.899 Other long term (current) drug therapy
CPT/HCPCS: 70450; 72125; 72128; 72131; 72192; 73564; 80053; 81001; 85025; 85610; 85730; 87086; 96365; 96375; 96376; 99285; J0696; J2270

== ENCOUNTER 2017-06-06 16:46 | Emergency (ER) | payer MEDICARE ==
[~2017-06-06 16:46] MED LIST changes: +CIPR-9 PO; -CYCL10TA PO; -OXYC1CAP PO
[2017-06-06 16:56] VITALS: BP 146/80; PULSE 92; RESP 16; TEMP 97.6; O2SAT 98
[2017-06-06] MEDS: ONDANSETRON ODT 4 MG TAB PO ONE ×2 (19:15→19:26)
[2017-06-06] MEDS: MORPHINE SULFATE 2 MG/ML INJ IM ONE ×2 (19:15→19:27)
[2017-06-06] MEDS ORDERED: oxyCODONE/ACETAMINOPHEN 5 MG/325 MG TAB PO ONE (19:30)
[2017-06-06] MEDS ORDERED: KETOROLAC TROMETHAMINE 60 MG/2 ML (IM) VIAL IM ONE (19:30)
[2017-06-06 19:46] VITALS: BP 109/61; PULSE 76; RESP 16; O2SAT 99
[2017-06-06] MEDS ORDERED: PERC5TAB12 PO (19:50)
--- NOTE | 2017-06-06 19:50 | PD ---
HPI Chief Complaint: Back/ Neck Pain or Injury Time Seen by Provider: 18:48 Travel History International Travel<30 days: No Contact w/Intl Traveler<30days: No Traveled to known affect area: No History of Present Illness HPI This is a 76-year-old male here for continued coccyx and low back pain after he had a slip and fall from a chair several days ago. He was seen in the emergency department yesterday and had an extensive workup of CT scans and blood work. No fracture was found. He was found to have a UTI. He was offered admission at that time and declined. He was discharged home with the assumption that he had pain medication. He presents today with his reporting that his Tylenol with codeine is not relieving his pain and is requesting some things stronger. He denies any falls or trauma since last night. He reports compliance with his Cipro medication for his UTI. Symptom severity is moderate. Aggravated by walking slightly relieved with rest. 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) Hepatitis: No Hiatal Hernia: No Immune Disorder: No Musculoskeletal: Yes (back pain, ARTHRITIS) Neurologic: No Psychiatric: Yes (ANXIETY) Reproductive: No Respiratory: No Myocardial Infarction: Yes (with stents) Thyroid Disease: No Past Surgical History AICD: No Body Medical Devices: CARDIAC STENT Cardiac Surgery: Yes (1 stent) Eye Surgery: Yes (CATARACT REMOVAL) Joint Replacement: No Pacemaker: No Tonsillectomy: Yes Other Surgery: Yes Social History Alcohol Use: No Tobacco Use: No Substance Use: No Allergies-Medications (Allergen,Severity, Reaction): Coded Allergies: No Known Allergies (Unverified , 06/06/17) Reported Meds & Prescriptions Reported Meds & Active Scripts Active Percocet (Oxycodone-Acetaminophen) 5-325 mg Tab 1 Tab PO Q6H PRN Cipro (Ciprofloxacin HCl) 500 Mg Tab 500 Mg PO BID 7 Days Sumatriptan (Sumatriptan Succinate) 100 Mg Tab 100 Mg PO ONCE PRN If a satisfactory response has not been obtained at 2 hours, a second dose may be administered Reported Oxycodone (Oxycodone HCl) 30 Mg Tab 30 Mg PO Q6H PRN Sm Cinnamon (Cinnamon) 500 Mg Cap 1 Cap PO DAILY Aspirin EC (Aspirin) 81 Mg Tabdr 81 Mg PO DAILY PT OFF DOSE FOR 2WEEKS IN PREP FOR SURGERY Senexon (Sennosides) 8.6 Mg Tab 1 Tab PO BID Review of Systems Except as stated in HPI: all other systems reviewed are Neg General / Constitutional: No: Fever Eyes: No: Visual changes HENT: No: Headaches Cardiovascular: No: Chest Pain or Discomfort Respiratory: No: Shortness of Breath Gastrointestinal: No: Abdominal Pain Genitourinary: No: Dysuria Physical Exam Narrative GENERAL: Alert 76-year-old male lying on his side. He grimaces in pain when he attempts to sit up SKIN: Warm and dry. HEAD: Normocephalic. Atraumatic EYES: No injection or drainage. NECK: Supple. No midline spine tenderness CARDIOVASCULAR: Regular rate and rhythm without murmurs, gallops, or rubs. RESPIRATORY: Breath sounds equal bilaterally. No accessory muscle use. GASTROINTESTINAL: Abdomen soft, non-tender, nondistended. MUSCULOSKELETAL: No cyanosis, or edema. Patient ambulating BACK: +TTP lumbar sacral region. No step-off deformity. No CVA tenderness. Data Data Last Documented VS Vital Signs Date Time Temp Pulse Resp B/P (MAP) Pulse Ox O2 Delivery O2 Flow Rate FiO2 06/06/17 19:46 76 16 109/61 (77) 99 Room Air 06/06/17 16:56 97.6 Orders Orders Morphine Inj (Morphine Inj) (06/06/17 19:15) Ondansetron Odt (Zofran Odt) (06/06/17 19:15) Oxycodone-Acetamin 5-325 Mg (Percocet (06/06/17 19:30) Ketorolac Inj (Toradol Inj) (06/06/17 19:30) MDM Medical Decision Making Medical Screen Exam Complete: Yes Emergency Medical Condition: Yes Differential Diagnosis Coccyx contusion, lumbar strain, other Narrative Course This is a 76-year-old male here for continued coccyx and low back pain after he had a slip and fall from a chair several days ago. He was seen in the emergency department yesterday and had an extensive workup of CAT scans and blood work. No fracture was found. He was found to have a UTI. He was offered admission at that time and declined. He was discharged home with the assumption that he had pain medication. He presents today reporting that his Tylenol with codeine is not relieving his pain and is requesting some things from her. On exam he has tenderness over the sacral coccyx region. His lower extremities are neurologically intact. He is ambulatory. He was given a shot of Toradol and Percocet and observed. He reports symptom improvement and requesting discharge. Diagnosis Primary Impression: Tail bone pain Referrals: Primary Care Physician Additional Instructions: Medication as directed. Follow with her primary doctor. Scripts Oxycodone-Acetaminophen (Percocet) 5-325 mg Tab 1 TAB PO Q6H Y for PAIN, #12 TAB 0 Refills Prov: Tati Rosado 06/06/17 Disposition: DISCHARGE HOME Condition: Stable Tati Rosado Jun 06, 2017 19:50
== END 2017-06-06 20:05 | disposition home or self-care (01) ==
LOC: PHEFT 16:46
DX: M53.3 Sacrococcygeal disorders, not elsewhere classified (principal); M19.90 Unspecified osteoarthritis, unspecified site; I25.2 Old myocardial infarction; W07.XXXD Fall from chair, subsequent encounter; Z95.5 Presence of coronary angioplasty implant and graft; Z79.899 Other long term (current) drug therapy
CPT/HCPCS: 96372; 99283; J1885; J2270

== ENCOUNTER 2017-07-22 08:29 | Observation (INO) | payer MEDICARE ==
[~2017-07-22] VITALS: Ht 180.3 cm; Wt 62.5 kg
[~2017-07-22 08:29] MED LIST changes: +PERC5TAB12 PO
[2017-07-22 08:31] VITALS: BP 155/84; PULSE 62; RESP 18; TEMP 98.2; O2SAT 99
[2017-07-22] MEDS ORDERED: ATOR20TA15 PO (09:27)
[2017-07-22] MEDS ORDERED: DONE10TA7 PO (09:27)
[2017-07-22] MEDS ORDERED: FINA5TAB2 (09:27)
--- NOTE | 2017-07-22 09:39 | PD ---
HPI Chief Complaint: Abdominal Pain Time Seen by Provider: 09:24 Travel History International Travel<30 days: No Contact w/Intl Traveler<30days: No Traveled to known affect area: No History of Present Illness HPI This 76-year-old male is brought by ambulance. He says he woke up at 3 AM this morning with lower abdominal pain. The pain goes across the lower abdomen bilaterally. Has been fairly persistent. He has nausea associated with the pain. He denies any history of abdominal surgery limited have surgery on his prostate several months ago. He says that he generally has a poor appetite. The pain is quite severe and has been fairly constant. He was at the eye doctor yesterday for evaluation of a problem with his left eye. 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) Hepatitis: No Hiatal Hernia: No Immune Disorder: No Musculoskeletal: Yes (back pain, ARTHRITIS) Neurologic: No Psychiatric: Yes (ANXIETY) Reproductive: No Respiratory: No Myocardial Infarction: Yes (with stents) Thyroid Disease: No ?: Not Past Surgical History AICD: No Body Medical Devices: CARDIAC STENT Cardiac Surgery: Yes (1 stent) Eye Surgery: Yes (CATARACT REMOVAL) Joint Replacement: No Pacemaker: No Tonsillectomy: Yes Other Surgery: Yes Social History Alcohol Use: No Tobacco Use: No Substance Use: No Allergies-Medications (Allergen,Severity, Reaction): Coded Allergies: No Known Allergies (Unverified , 07/22/17) Reported Meds & Prescriptions Reported Meds & Active Scripts Active Sumatriptan (Sumatriptan Succinate) 100 Mg Tab 100 Mg PO ONCE PRN If a satisfactory response has not been obtained at 2 hours, a second dose may be administered Reported Finasteride 5 Mg Tab 5 Mg DAILY Do not crush. Atorvastatin (Atorvastatin Calcium) 20 Mg Tab 20 Mg PO HS Donepezil 10 Mg Tab 10 Mg PO HS Sm Cinnamon (Cinnamon) 500 Mg Cap 1 Cap PO DAILY Aspirin EC (Aspirin) 81 Mg Tabdr 81 Mg PO DAILY PT OFF DOSE FOR 2WEEKS IN PREP FOR SURGERY Senexon (Sennosides) 8.6 Mg Tab 1 Tab PO BID Review of Systems General / Constitutional: No: Fever, Chills Eyes: Positive: Visual changes, No: Diploplia, Blurred Vision HENT: No: Headaches, Vertigo Cardiovascular: No: Chest Pain or Discomfort, Palpitations Respiratory: No: Cough, Shortness of Breath Gastrointestinal: Positive: Nausea, Abdominal Pain Genitourinary: No: Frequency Musculoskeletal: No: Myalgias, Arthralgias Skin: No Rash, No Itching Neurologic: No: Weakness Hematologic/Lymphatic: No: Easy Bruising Physical Exam Narrative GENERAL elderly frail male SKIN: Focused skin assessment warm/dry. HEAD: Atraumatic. Normocephalic. EYES: Pupils equal and round. No scleral icterus. No injection or drainage. ENT: No nasal bleeding or discharge. Mucous membranes pink and moist. NECK: Trachea midline. No JVD. CARDIOVASCULAR: Regular rate and rhythm. No murmur appreciated. RESPIRATORY: No accessory muscle use. Clear to auscultation. Breath sounds equal bilaterally. GASTROINTESTINAL: Abdomen soft, there is tenderness across the abdomen. I don' t feel any abnormal masses nondistended. Hepatic and splenic margins not palpable. MUSCULOSKELETAL: No obvious deformities. No clubbing. No cyanosis. No edema. NEUROLOGICAL: Awake and alert. No obvious cranial nerve deficits. Motor grossly within normal limits. Normal speech. PSYCHIATRIC: Appropriate mood and affect; insight and judgment normal. Data Data Last Documented VS Vital Signs Date Time Temp Pulse Resp B/P (MAP) Pulse Ox O2 Delivery O2 Flow Rate FiO2 07/22/17 11:35 59 18 146/80 (102) 99 Room Air 07/22/17 08:31 98.2 Orders Orders Complete Blood Count With Diff (07/22/17 09:34) Comprehensive Metabolic Panel (07/22/17 09:34) Prothrombin Time / Inr (Pt) (07/22/17 09:34) Act Partial Throm Time (Ptt) (07/22/17 09:34) Urinalysis - C+S If Indicated (07/22/17 09:34) Ct Abd/Pel W Iv Contrast(Rout) (07/22/17 09:34) Sodium Chlor 0.9% 1000 Ml Inj (Ns 1000 M (07/22/17 09:45) Ondansetron Inj (Zofran Inj) (07/22/17 09:45) Morphine Inj (Morphine Inj) (07/22/17 09:45) Urine Culture (07/22/17 10:30) Iohexol 350 Inj (Omnipaque 350 Inj) (07/22/17 11:30) Place In Observation (07/22/17 ) Vital Signs (Adult) GRANT.Q4H (07/22/17 11:53) Activity Oob With Assistance (07/22/17 11:53) Admit Order (Ed Use Only) (07/22/17 11:58) Morphine Inj (Morphine Inj) (07/22/17 12:00) Piperacil-Tazo 4.5 Gm Premix (Zosyn 4.5 (07/22/17 12:15) Labs Laboratory Tests Test 07/22/17 10:00 07/22/17 10:30 White Blood Count 8.0 TH/MM3 Red Blood Count 5.22 MIL/MM3 Hemoglobin 15.6 GM/DL Hematocrit 46.0 % Mean Corpuscular Volume 88.1 FL Mean Corpuscular Hemoglobin 30.0 PG Mean Corpuscular Hemoglobin Concent 34.0 % Red Cell Distribution Width 13.6 % Platelet Count 196 TH/MM3 Mean Platelet Volume 6.6 FL Neutrophils (%) (Auto) 86.0 % Lymphocytes (%) (Auto) 5.3 % Monocytes (%) (Auto) 7.4 % Eosinophils (%) (Auto) 0.1 % Basophils (%) (Auto) 1.2 % Neutrophils # (Auto) 6.9 TH/MM3 Lymphocytes # (Auto) 0.4 TH/MM3 Monocytes # (Auto) 0.6 TH/MM3 Eosinophils # (Auto) 0.0 TH/MM3 Basophils # (Auto) 0.1 TH/MM3 CBC Comment DIFF FINAL Differential Comment Prothrombin Time 11.3 SEC Prothromb Time International Ratio 1.1 RATIO Activated Partial Thromboplast Time 26.8 SEC Blood Urea Nitrogen 11 MG/DL Creatinine 0.96 MG/DL Random Glucose 117 MG/DL Total Protein 7.4 GM/DL Albumin 3.6 GM/DL Calcium Level 9.2 MG/DL Alkaline Phosphatase 68 U/L Aspartate Amino Transf (AST/SGOT) 28 U/L Alanine Aminotransferase (ALT/SGPT) 16 U/L Total Bilirubin 0.8 MG/DL Sodium Level 137 MEQ/L Potassium Level 4.0 MEQ/L Chloride Level 103 MEQ/L Carbon Dioxide Level 26.3 MEQ/L Anion Gap 8 MEQ/L Estimat Glomerular Filtration Rate 76 ML/MIN Urine Collection Type CLEAN CATCH Urine Color YELLOW Urine Turbidity CLEAR Urine pH 7.0 Urine Specific [place] 1.015 Urine Protein 30 mg/dL Urine Glucose (UA) NEG mg/dL Urine Ketones NEG mg/dL Urine Occult Blood TRACE Urine Nitrite NEG Urine Bilirubin NEG Urine Urobilinogen 0.2 MG/DL Urine Leukocyte Esterase TRACE Urine RBC 4-9 /hpf Urine WBC 9-14 /hpf Urine Squamous Epithelial Cells 0-5 /hpf Urine Mucus FEW /lpf Microscopic Urinalysis Comment CULTURE INDICATED Urine Collection Time 10:30 [facility] Medical Decision Making Medical Screen Exam Complete: Yes Emergency Medical Condition: Yes Medical Record Reviewed: Yes Differential Diagnosis Differential includes gastroenteritis, diverticulitis, bowel obstruction Narrative Course CT scan shows extensive diverticular disease throughout the sigmoid colon as well as wall thickening within the sigmoid suggesting possible mild acute diverticulitis. No pericolic abscess is noted. There is also diffuse wall thickening involving multiple loops of ileum suggesting possible ileitis. Small amount of ascites is noted. Gentleman is having significant pain. He will be started on Zosyn and he will be admitted Diagnosis Primary Impression: Acute diverticulitis Admitting Information Admitting Physician Requests: Admit Serge Crocker MD Jul 22, 2017 09:39
[2017-07-22 09:42] VITALS: BP 163/90; PULSE 64; RESP 18; O2SAT 98
[2017-07-22] MEDS ORDERED: MORPHINE SULFATE 2 MG/ML SYRINGE IV PUSH ONE ×2 (09:45→12:00)
[2017-07-22] MEDS ORDERED: SODIUM CHLOR 0.9% 1000 ML INJ 1,000 ML IV ONE (09:45)
[2017-07-22] MEDS ORDERED: ONDANSETRON HCL 4 MG/2 ML VIAL IV PUSH ONE (09:45)
[2017-07-22 10:30] VITALS: BP 156/82; PULSE 60; RESP 18; O2SAT 98
[2017-07-22 10:42] LABS: AUTOMATED NEUTROPHIL # 6.9 TH/MM3 (1.8-7.7); BASOPHIL # 0.1 TH/MM3 (0-0.2); BASOPHIL % 1.2 % (0.0-2.0); EOSINOPHIL % 0.1 % (0.0-4.0); HEMOGLOBIN 15.6 GM/DL (13.0-17.0); LYMPH % 5.3 % (9.0-44.0); LYMPHOCYTE # 0.4 TH/MM3 (1.0-4.8); MEAN CELL VOLUME 88.1 FL (80.0-100.0); MEAN PLATELET VOLUME 6.6 FL (7.0-11.0); MONO % 7.4 % (0.0-8.0); MONOCYTE # 0.6 TH/MM3 (0-0.9); PLATELET COUNT 196 TH/MM3 (150-450); RED BLOOD COUNT 5.22 MIL/MM3 (4.50-5.90); RED CELL DISTRIBUTION WIDTH 13.6 % (11.6-17.2)
[2017-07-22 10:47] LABS: CHLORIDE 103 MEQ/L (98-107); SODIUM (NA) 137 MEQ/L (136-145)
[2017-07-22 10:51] LABS: ALBUMIN 3.6 GM/DL (3.4-5.0); BICARBONATE 26.3 MEQ/L (21.0-32.0); CALCIUM 9.2 MG/DL (8.5-10.1); GLUCOSE,RANDOM 117 MG/DL (74-106); INTERNATIONAL NORMALIZED RATIO 1.1 RATIO; PROTHROMBIN TIME - PATIENT 11.3 SEC (9.8-11.6)
[2017-07-22 10:52] LABS: BLOOD UREA NITROGEN 11 MG/DL (7-18)
[2017-07-22 10:54] LABS: ALT (GPT) 16 U/L (12-78); AST (GOT) 28 U/L (15-37)
[2017-07-22 10:55] LABS: CREATININE 0.96 MG/DL (0.60-1.30); GLOMERULAR FILTRATION RATE 76 ML/MIN (>89)
[2017-07-22 10:56] LABS: TOTAL BILIRUBIN ADULT 0.8 MG/DL (0.2-1.0); TOTAL PROTEIN 7.4 GM/DL (6.4-8.2)
[2017-07-22 10:57] LABS: BILIRUBIN, URINE NEG (NEG); BLOOD, URINE TRACE (NEG); GLUCOSE,URINE NEG (NEG); KETONE, URINE NEG (NEG); NITRITE,URINE NEG (NEG); URINE COLOR YELLOW (YELLW/STRAW); URINE LEUKOCYTE ESTERASE TRACE (NEG)
[2017-07-22 10:57] LABS: ALKALINE PHOSPHATASE 68 U/L (45-117)
[2017-07-22 11:10] LABS: MUCUS URINE FEW /lpf (OCC); SQUAMOUS EPITHELIAL CELL URINE 0-5 /hpf (0-5)
[2017-07-22] MEDS ORDERED: IOHEXOL 350 MG/ML 10 ML VIAL (for RAD DIAG) IVCONTRAST ONE (11:30)
[2017-07-22 11:35] VITALS: BP 146/80; PULSE 59; RESP 18; O2SAT 99
--- NOTE | 2017-07-22 11:43 | RADRPT ---
EXAM DATE/TIME: 07/22/2017 11:18 [facility] COMPARISON: CT PELVIS W/O CONTRAST, June 04, 2017, 19:37. INDICATIONS : Lower abdominal pain. Nausea. IV CONTRAST: 85 cc Omnipaque 350 (iohexol) IV ORAL CONTRAST: No oral contrast ingested. RADIATION DOSE: 6.29 CTDIvol (mGy) MEDICAL HISTORY : Diabetes mellitus type 2. Myocardial infarction. SURGICAL HISTORY : Coronary artery stent. ENCOUNTER: Initial ACUITY: 1 day PAIN SCALE: 8/10 LOCATION: Bilateral lower quadrant TECHNIQUE: Volumetric scanning of the abdomen and pelvis was performed. Using automated exposure control and ad justment of the mA and/or kV according to patient size, radiation dose was kept as low as reasonably achievable to obtain optimal diagnostic quality images. DICOM format image data is available electro nically for review and comparison. FINDINGS: LOWER LUNGS: The visualized lower lungs are clear. LIVER: There is a 9 mm low density lesion within the left lobe of the liver which is too small for accurate density measurement. There is no dilation of the biliary tree. No calcified gallstones. SPLEEN: Normal size without lesion. PANCREAS: Within normal limits. KIDNEYS: Normal in size and shape. There are 2 left renal cysts with the larger measuring 5.1 cm there There is no solid mass, stone or hydronephrosis. ADRENAL GLANDS: Within normal limits. VASCULAR: There is no aortic aneurysm. BOWEL/MESENTERY: There is extensive diverticular disease throughout the sigmoid colon as well as wall thickening withi n the sigmoid colon suggesting possible mild acute diverticulitis. No pericolic abscess is noted. Dif fuse wall thickening involving multiple loops of ileum are also noted suggesting possible ileitis. Cl inical correlation is recommended. A small amount of ascites is noted within the abdomen and pelvis. ABDOMINAL WALL: Within normal limits. RETROPERITONEUM: There is no lymphadenopathy. BLADDER: No wall thickening or mass. REPRODUCTIVE: Within normal limits. INGUINAL: There is no lymphadenopathy or hernia. MUSCULOSKELETAL: Degenerative changes within the lower lumbar spine CONCLUSION: 1. Extensive diverticular disease throughout the sigmoid colon as well as wall thickening within the sigmoid colon suggesting possible mild acute diverticulitis. No pericolic abscess is noted. 2. Diffuse wall thickening involving multiple loops of ileum are also noted suggesting possible ileit is. Clinical correlation is recommended. 3. Small amount of ascites is noted within the abdomen and pelvis. 4. 9 mm low density lesion within the left lobe of the liver which is indeterminate due to its small size. 5. Left renal cysts. 6. Degenerative changes are noted within lower lumbar spine Tao Watters MD on July 22, 2017 at 11:32 Board Certified Radiologist. This report was verified electronically.
[2017-07-22] MEDS ORDERED: PIPERACIL-TAZO 4.5 GM PREMIX 100 ML IV ONE (12:15)
--- NOTE | 2017-07-22 16:20 | HHI.HP ---
[facility] Service [facility] Primary Care Physician Shant Grimm MD Admission Diagnosis ACUTE DIVERTICULITIS Diagnoses: Chief Complaint: Abdominal pain Travel History International Travel<30 Days: No Contact w/Intl Traveler <30 Da: No Traveled to Known Affected Are: No History of Present Illness 76-year-old white male being admitted for intractable abdominal pain to diverticulitis Patient was in his usual state of health until sometime early last night when he woke up and sudden onset 10 out of 10 abdominal pain in the infraumbilical region that expanded bilaterally. Pain worsened with ambulation and movement and repositioning. Had nausea and dry heaving. Denies having any diarrhea. Patient also reports having dysuria . Decided come to the ER. Patient says he has bowel movement about twice a week, says he drinks plenty of water, says he takes Colace regularly. Patient says he takes his other medications otherwise regularly and manages them himself. In the emergency room, patient had blood work done which was unremarkable. CT abdomen was performed which I independently reviewed which showed mild constipation, radiology read as severe extensive diverticular disease. Was given IV morphine and Zosyn. Patient now upon admission evaluation says that his pain is now just down to a 9/10. Review of Systems Except as stated in HPI: all other systems reviewed are Neg Past Family Social History Past Medical History Diverticulosis Constipation Hypertension Allergies: Coded Allergies: No Known Allergies (Unverified , 07/22/17) Family History Hypertension Social History Denies smoking, denies alcohol Physical Exam Vital Signs Vital Signs Date Time Temp Pulse Resp B/P (MAP) Pulse Ox O2 Delivery O2 Flow Rate FiO2 07/22/17 13:04 07/22/17 11:35 59 18 146/80 (102) 99 Room Air 07/22/17 10:40 14 07/22/17 10:30 60 18 156/82 (106) 98 Room Air 07/22/17 09:42 64 18 163/90 (114) 98 Room Air 07/22/17 08:31 98.2 62 18 155/84 (107) 99 Physical Exam VS: afebrile GENERAL: Lying in bed, awake, alert, mild distress secondary to pain, appears anxious SKIN: Warm and dry. EYES: No scleral icterus. No injection or drainage. ENT: No nasal bleeding or discharge. Mucous membranes pink and moist. CARDIOVASCULAR: Regular rate and rhythm. no murmurs RESPIRATORY: No accessory muscle use. Clear to auscultation. Breath sounds equal bilaterally. GASTROINTESTINAL: Abdomen soft, nondistended. Has diffuse moderate tenderness to palpation in infraumbilical region expanding bilaterally to bilateral lower quadrants Extremities: No clubbing, cyanosis, or edema. No obvious deformities. MUSCULOSKELETAL: adequate muscle bulk and tone for age and habitus NEUROLOGICAL: Awake and alert. No obvious cranial nerve deficits. No facial droop nor slurred speech noted. PSYCHIATRIC: Appropriate mood and affect; insight and judgment normal. Laboratory Laboratory Tests Test 07/22/17 10:00 07/22/17 10:30 White Blood Count 8.0 Red Blood Count 5.22 Hemoglobin 15.6 Hematocrit 46.0 Mean Corpuscular Volume 88.1 Mean Corpuscular Hemoglobin 30.0 Mean Corpuscular Hemoglobin Concent 34.0 Red Cell Distribution Width 13.6 Platelet Count 196 Mean Platelet Volume 6.6 Neutrophils (%) (Auto) 86.0 Lymphocytes (%) (Auto) 5.3 Monocytes (%) (Auto) 7.4 Eosinophils (%) (Auto) 0.1 Basophils (%) (Auto) 1.2 Neutrophils # (Auto) 6.9 Lymphocytes # (Auto) 0.4 Monocytes # (Auto) 0.6 Eosinophils # (Auto) 0.0 Basophils # (Auto) 0.1 CBC Comment DIFF FINAL Differential Comment Prothrombin Time 11.3 Prothromb Time International Ratio 1.1 Activated Partial Thromboplast Time 26.8 Blood Urea Nitrogen 11 Creatinine 0.96 Random Glucose 117 Total Protein 7.4 Albumin 3.6 Calcium Level 9.2 Alkaline Phosphatase 68 Aspartate Amino Transf (AST/SGOT) 28 Alanine Aminotransferase (ALT/SGPT) 16 Total Bilirubin 0.8 Sodium Level 137 Potassium Level 4.0 Chloride Level 103 Carbon Dioxide Level 26.3 Anion Gap 8 Estimat Glomerular Filtration Rate 76 Urine Collection Type CLEAN CATCH Urine Color YELLOW Urine Turbidity CLEAR Urine pH 7.0 Urine Specific [place] 1.015 Urine Protein 30 Urine Glucose (UA) NEG Urine Ketones NEG Urine Occult Blood TRACE Urine Nitrite NEG Urine Bilirubin NEG Urine Urobilinogen 0.2 Urine Leukocyte Esterase TRACE Urine RBC 4-9 Urine WBC 9-14 Urine Squamous Epithelial Cells 0-5 Urine Mucus FEW Microscopic Urinalysis Comment CULTURE INDICATED Urine Collection Time 10:30 Date/Time Source Procedure Growth Status 07/22/17 10:30 Urine Clean Catch Urine Culture Pending Received Result Diagram: 07/22/17 1000 07/22/17 1000 Imaging Last Impressions Abdomen/Pelvis CT 07/22/17 0934 Signed Impressions: Service Date/Time: Saturday, July 22, 2017 11:18 - CONCLUSION: 1. Extensive diverticular disease throughout the sigmoid colon as well as wall thickening within the sigmoid colon suggesting possible mild acute diverticulitis. No pericolic abscess is noted. 2. Diffuse wall thickening involving multiple loops of ileum are also noted suggesting possible ileitis. Clinical correlation is recommended. 3. Small amount of ascites is noted within the abdomen and pelvis. 4. 9 mm low density lesion within the left lobe of the liver which is indeterminate due to its small size. 5. Left renal cysts. 6. Degenerative changes are noted within lower lumbar spine Tao Watters MD Caprini VTE Risk Assessment Caprini VTE Risk Assessment: Mod/High Risk (score >= 2) Caprini Risk Assessment Model Point Value = 1 Point Value = 2 Point Value = 3 Point Value = 5 Age 41-60 Minor surgery BMI > 25 kg/m2 Swollen legs Varicose veins or History of unexplained or recurrent spontaneous Oral contraceptives or hormone replacement Sepsis (< 1 month) Serious lung disease, including pneumonia (< 1 month) Abnormal pulmonary function Acute myocardial infarction Congestive heart failure (< 1 month) History of inflammatory bowel disease Medical patient at bed rest Age 61-74 Arthroscopic surgery Major open surgery (> 45 min) Laparoscopic surgery (> 45 min) Malignancy Confined to bed (> 72 hours) Immobilizing plaster cast Central venous access Age >= 75 History of VTE Family history of VTE Factor V Leiden Prothrombin [id number] Lupus anticoagulant Anticardiolipin antibodies Elevated serum homocysteine Heparin-induced thrombocytopenia Other congenital or acquired thrombophilia Stroke (< 1 month) Elective arthroplasty Hip, pelvis, or leg fracture Acute spinal cord injury (< 1 month) Prophylaxis Regimen Total Risk Factor Score Risk Level Prophylaxis Regimen 0-1 Low Early ambulation 2 Moderate Order ONE of the following: *Sequential Compression Device (SCD) *Heparin 5000 units SQ BID 3-4 Higher Order ONE of the following medications: *Heparin 5000 units SQ TID *Enoxaparin/Lovenox 40 mg SQ daily (WT < 150 kg, CrCl > 30 mL/min) *Enoxaparin/Lovenox 30 mg SQ daily (WT < 150 kg, CrCl > 10-29 mL/min) *Enoxaparin/Lovenox 30 mg SQ BID (WT < 150 kg, CrCl > 30 mL/min) AND/OR *Sequential Compression Device (SCD) 5 or more Highest Order ONE of the following medications: *Heparin 5000 units SQ TID (Preferred with Epidurals) *Enoxaparin/Lovenox 40 mg SQ daily (WT < 150 kg, CrCl > 30 mL/min) *Enoxaparin/Lovenox 30 mg SQ daily (WT < 150 kg, CrCl > 10-29 mL/min) *Enoxaparin/Lovenox 30 mg SQ BID (WT < 150 kg, CrCl > 30 mL/min) AND *Sequential Compression Device (SCD) Assessment and Plan Assessment and Plan 86-year-old white male admitted for intractable abdominal pain likely secondary to acute diverticulitis Acute diverticulitis -Continue Zosyn, p.o. Lortab as needed, IV morphine for breakthrough pain control -IV fluids -clear liquid diet, Zofran prn Dysuria -suspected UTI likely predisposed 2/2 chronic constipation, continue abx as above, cultures pending chronic constipation - continue home colace, adding on miralax BPH -Continue home finasteride, adding on Flomax Lovenox Ru Kraus MD Jul 22, 2017 16:20
[2017-07-22] MEDS ORDERED: METHYLNALTREXONE BROMIDE 12 MG/0.6 ML VIAL SQ ONE (17:00)
[2017-07-22] MEDS: PIPERACIL-TAZO 3.375 GM PREMIX 50 ML IV SCH (17:36)
[2017-07-22 18:32] VITALS: BP 141/86; PULSE 61; RESP 14; TEMP 97.8; O2SAT 98
[2017-07-22] MEDS: MORPHINE SULFATE 4 MG/ML INJ IV PUSH PRN (19:45)
[2017-07-22 20:00] VITALS: BP 142/88; PULSE 69; RESP 20; TEMP 98.1; O2SAT 95
[2017-07-22] MEDS ORDERED: TAMSULOSIN HCL 0.4 MG CAP PO SCH (21:00)
[2017-07-22] MEDS ORDERED: DONEPEZIL HCL 5 MG TAB PO SCH (21:00)
[2017-07-22] MEDS ORDERED: ATORVASTATIN 20 MG TAB PO SCH (21:00)
[2017-07-22] MEDS: ACETAMINOPHEN/HYDROcodone 325 MG/7.5 MG TAB PO PRN (21:43)
[2017-07-23] VITALS: BP 132/83; PULSE 73; RESP 18; TEMP 98.1; O2SAT 96
[2017-07-23] MEDS: PIPERACIL-TAZO 3.375 GM PREMIX 50 ML IV SCH ×3 (00:18→12:38)
[2017-07-23] MEDS: ACETAMINOPHEN/HYDROcodone 325 MG/7.5 MG TAB PO PRN ×2 (06:02→12:39)
[2017-07-23] MEDS: MORPHINE SULFATE 4 MG/ML INJ IV PUSH PRN (06:30)
[2017-07-23 07:52] VITALS: BP 126/89; PULSE 68; RESP 18; TEMP 97.7; O2SAT 99
[2017-07-23] MEDS ORDERED: METHYLNALTREXONE BROMIDE 12 MG/0.6 ML VIAL SQ SCH (09:00)
[2017-07-23] MEDS ORDERED: FINASTERIDE 5 MG TAB PO SCH (09:00)
[2017-07-23] MEDS ORDERED: CINNAMON PO SCH (09:00)
[2017-07-23 12:00] VITALS: BP 171/94; PULSE 58; RESP 12; TEMP 97.4; O2SAT 99
--- NOTE | 2017-07-23 12:23 | HHI.PR ---
Subjective Remarks Nursing reports some transient disorientation/confusion last night. Patient apparently was eating last night. This morning the patient seems to be a poor historian but ultimately does state that he vomited a little bit of his breakfast. Says that his abdominal pain is much improved since yesterday. Says his back is aching from lying on the bed. Objective Vital Signs Date Time Temp Pulse Resp B/P (MAP) Pulse Ox O2 Delivery O2 Flow Rate FiO2 07/23/17 07:52 97.7 68 18 126/89 (101) 99 07/23/17 00:00 98.1 73 18 132/83 (99) 96 07/22/17 20:00 98.1 69 20 142/88 (106) 95 07/22/17 18:32 97.8 61 14 141/86 (104) 98 07/22/17 13:04 I/O 07/22/17 07/22/17 07/22/17 07/23/17 07/23/17 07/23/17 07:00 15:00 23:00 07:00 15:00 23:00 Intake Total 300 ml 125 ml Balance 300 ml 125 ml Intake IV Total 300 ml 125 ml # Voids 1 1 Result Diagram: 07/22/17 1000 07/22/17 1000 Objective Remarks Milder diffuse abdominal tenderness to palpation in comparison to yesterday Abdomen is otherwise soft, nondistended, lying in bed, is able to stand and ambulate without difficulty A/P Assessment and Plan Diverticulitis -Much improvement since yesterday. Tolerating p.o. pain medication, tolerating p.o. intake. Minimal nausea. Patient wanting to go home. Patient was counseled extensively on the importance of high-fiber diet and taking the narcotic prescribed pain medication only as direly needed, may take Tylenol otherwise. Will discharge with antibiotic and pain medication regimen. Patient has met maximal benefit from hospitalization and is clinically stable for discharge. Ru Kraus MD Jul 23, 2017 12:23
[2017-07-23] MEDS ORDERED: ONDANSETRON ODT 4 MG TAB PO PRN (12:30)
[2017-07-23 16:00] VITALS: BP 153/98; PULSE 73; RESP 14; TEMP 96.8; O2SAT 99
[2017-07-23] MEDS ORDERED: ONDA4TAB7 SL (16:14)
[2017-07-23] MEDS ORDERED: HYDR-3288 PO (16:14)
--- NOTE | 2017-07-23 16:15 | HHI.DCPOC ---
Discharge Care Plan Diagnosis: (1) Acute diverticulitis Goals to Promote Your Health * To prevent worsening of your condition and complications * To maintain your health at the optimal level Directions to Meet Your Goals Take your medications as prescribed Follow your dietary instruction Follow activity as directed Keep your appointments as scheduled Take your immunizations and boosters as scheduled If your symptoms worsen call your PCP, if no PCP go to Urgent Care Center or Emergency Room Smoking is Dangerous to Your Health. Avoid second hand smoke Call the 24-hour hour crisis hotline for domestic abuse at Ru Kraus MD Jul 23, 2017 16:15
[2017-07-23] MEDS ORDERED: MIRA3350 PO (16:18)
[2017-07-23] MEDS ORDERED: METR1TAB76 PO (16:18)
[2017-07-23] MEDS ORDERED: CIPR750T2 PO (16:18)
== END 2017-07-23 17:46 | disposition home or self-care (01) ==
LOC: PHED 08:29 → PHEDA 11:59 → PH3A 13:20
PROVIDERS: ADMIT Hospitalist; ATTEND Hospitalist
DX: K57.92 Diverticulitis of intestine, part unspecified, without perforation or abscess without bleeding (principal); R30.0 Dysuria; N28.1 Cyst of kidney, acquired; R18.8 Other ascites; R41.0 Disorientation, unspecified; K59.09 Other constipation; I10 Essential (primary) hypertension; E11.9 Type 2 diabetes mellitus without complications; R11.2 Nausea with vomiting, unspecified; I25.2 Old myocardial infarction; M47.9 Spondylosis, unspecified; F41.9 Anxiety disorder, unspecified; N40.0 Benign prostatic hyperplasia without lower urinary tract symptoms; Z79.899 Other long term (current) drug therapy
CPT/HCPCS: 74177; 80053; 81001; 85025; 85610; 85730; 87086; 96365; 96366; 96375; 96376; 99285; G0378; J2212; J2270; J2405; J2543; J7030; Q9967

== ENCOUNTER → 2017-08-26 | Day surgery (SDC) | payer MEDICARE ==
[~2017-08-26] MED LIST changes: +ARTH650T6 PO; +ATOR20TA15 PO; +BUPIVACAINE HCL PF 0.75% 30 ML VIAL ONE; -CIPR-9 PO; +CIPR750T2 PO; +DONE10TA7 PO; +DULC100C PO; +FINA5TAB2; +HYDR-3288 PO; +MEPERIDINE HCL 25 MG/ML VIAL IV ONE; +METR1TAB76 PO; +MIRA3350 PO; +ONDA4TAB7 SL; +OXYC-426 PO; -OXYC30TA PO; -PERC5TAB12 PO; +PROPOFOL 200 MG/20 ML AMP IV ONE; +TRIAMCINOLONE ACETONIDE 40 MG/ML VIAL NERV BLOCK ONE
--- NOTE | 2017-08-26 07:53 | M6 ---
cc: Chandni Menjivar MD DATE: 08/26/2017 PROCEDURE PERFORMED: S5 nerve neurolysis. History and physical was completed and signed. Consent was signed. Procedure site was marked. Medications were listed and reconciled. Pain score was recorded. Allergies were noted. Time out was taken. Fluoroscopy time was recorded where applicable. Sedation was administered or directed by Dr. Menjivar. The patient was given oxygen. The patient was monitored by a registered nurse. Total procedure time was greater than 15 minutes. DESCRIPTION OF PROCEDURE: IV was started. Blood pressure cuff pulse oximeter and EKG were applied. The patient was placed in the prone position, sedated with small amounts of propofol titrated to effect. Vital signs were monitored and remained stable throughout the procedure. Her sacral and coccygeal area were prepped with alcohol and 10% Betadine solution, draped with sterile drapes. A 25-gauge, 1-1/2 inch needle was inserted down to the periosteum just distal to the sacral hiatus. There was negative aspiration for blood and a fan-like fashion, the patient was given a total of 6 mL of Marcaine 0.75% which contained 10 mg of Kenalog. Following the procedure, the patient was taken to the recovery room with stable vital signs neurologically intact. Chandni Menjivar MD WRM/DL , 07:43 AM , 07:53 AM
== END | disposition home or self-care (01) ==
LOC: PHSDC 06:33
PROVIDERS: ATTEND Pain Medicine Interventional Pain Medicine
DX: M54.5 Low back pain (principal)
CPT/HCPCS: 64640; 99152; J2175; J3301

== ENCOUNTER → 2017-09-16 | Day surgery (SDC) | payer MEDICARE ==
[~2017-09-16] MED LIST changes: -CIPR750T2 PO; +CYANOCOBALAMIN 1000 MCG/ML VIAL IM ONE; -HYDR-3288 PO; +IBUP-232 PO; -METR1TAB76 PO; -MIRA3350 PO; -ONDA4TAB7 SL
--- NOTE | 2017-09-16 09:40 | M6 ---
cc: Chandni Menjivar MD DATE: 09/16/2017 DATE OF : 1940. PROCEDURE PERFORMED: S5 nerve neurolysis. History and physical was completed and signed. Consent was signed. Procedure site was marked. Medications were listed and reconciled. Pain score was recorded. Allergies were noted. Time out was taken. Fluoroscopy time was recorded where applicable. Sedation was administered or directed by Dr. Menjivar. The patient was given oxygen. The patient was monitored by a registered nurse. Total procedure time was greater than 15 minutes. PROCEDURE NOTE: Blood pressure cuff, pulse oximeter and EKG were applied. The patient was placed in the prone position and sedated with small amounts of Propofol titrated to effect. Vital signs were monitored and remained stable throughout the procedure. The coccyx and sacral area were prepped with alcohol and 10% Betadine solution and draped with sterile drapes. Then, a 1-1/2-inch, 25-gauge spinal needle was inserted down to the periosteum just distal to the sacral hiatus. There was negative aspiration for blood or any other type of fluid. Then, in a fan-like fashion distal to the sacral hiatus the patient was given 6 mL of Marcaine 0.75% which contained 40 mg of Kenalog. Following this, the patient was observed in the recovery area with stable vital signs prior to being discharged. MD SKYLAR Segundo/ANNELIESE , 09:28 AM , 09:39 AM
== END | disposition home or self-care (01) ==
LOC: PHSDC 07:55
PROVIDERS: ATTEND Pain Medicine Interventional Pain Medicine
DX: M54.5 Low back pain (principal)
CPT/HCPCS: 64640; 99152; J2175; J3301; J3420